=== PATIENT | female | born 1980 | race Hispanic/Latino ===

== ENCOUNTER 2017-06-19 17:51 | Emergency (ER) | payer MEDICAID ==
[2017-06-19] MEDS ORDERED: METHYLPREDNISOLONE SOD SUCC 125MG/2ML VIAL ONE (19:20)
[2017-06-19] MEDS ORDERED: ONDANSETRON HCL 4 MG/2 ML VIAL ONE (19:20)
[2017-06-19] MEDS ORDERED: MORPHINE SULFATE 4 MG/1ML SYG ONE (19:21)
[2017-06-19 19:39] LABS: APPEARANCE,URINE Cloudy (CLEAR); BILIRUBIN,URINE Negative (NEGATIVE); COLOR,URINE Yellow (YELLOW); GLUCOSE, URINE (UA) Negative (NEGATIVE); KETONES,URINE Negative (NEGATIVE); LEUKOCYTE ESTERASE ,URINE Negative (NEGATIVE); NITRATE,URINE Negative (NEGATIVE); OCCULT BLOOD,URINE Negative (NEGATIVE); PH,URINE 8.5 (5.0-8.0); PROTEIN,URINE Negative (NEGATIVE)
[2017-06-19 19:40] LABS: HCG,QUAL RESULT NEGATIVE (NEGATIVE)
[2017-06-19 19:48] LABS: AMORPHOUS SEDIMENT,UR Few /LPF (None Seen); BACTERIA,URINE Few /HPF (None Seen); RBC,URINE None Seen /HPF (0-1); SQUAMOUS EPITHELIAL CELL,UR None Seen /LPF (0-2); WBC,URINE 0-1 /HPF (0-1)
== END 2017-06-19 21:12 | disposition home or self-care (01) ==
LOC: EDH 17:51
DX: M54.42 Lumbago with sciatica, left side (principal)
CPT/HCPCS: 81001; 81025; 96374; 96375; 99284; J2270; J2405; J2930

== ENCOUNTER 2019-10-09 01:38 | Emergency (ER) | payer MEDICAID ==
[2019-10-09] MEDS ORDERED: TETANUS/DIPHTHERIA TOXOID [ADULT] 0.5 ML VIAL IM ONE (01:50)
[2019-10-09] MEDS ORDERED: LIDOCAINE HCL-MPF 2% 5ML VIAL ONE (02:27)
[2019-10-09] MEDS ORDERED: KETOROLAC TROMETHAMINE 60 MG/2 ML VIAL ONE (04:22)
[2019-10-09] MEDS ORDERED: CEFAZOLIN SODIUM 1 GM VIAL ONE (04:22)
== END 2019-10-09 05:23 | disposition home or self-care (01) ==
LOC: EDH 01:38
DX: S90.451A Superficial foreign body, right great toe, initial encounter (principal); S70.311A Abrasion, right thigh, initial encounter; S80.212A Abrasion, left knee, initial encounter; S80.211A Abrasion, right knee, initial encounter; S10.91XA Abrasion of unspecified part of neck, initial encounter; S20.319A Abrasion of unspecified front wall of thorax, initial encounter; L08.9 Local infection of the skin and subcutaneous tissue, unspecified; Y04.2XXA Assault by strike against or bumped into by another person, initial encounter; Y92.89 Other specified places as the place of occurrence of the external cause; Y93.89 Activity, other specified; Y99.8 Other external cause status
CPT/HCPCS: 10120; 73630; 73660; 90471; 90714; 96372 ×2; 99284; J0690; J1885; J3490

== ENCOUNTER 2019-10-10 13:04 | Inpatient (IN) | payer MEDICAID ==
[~2019-10-10] VITALS: Ht 157.5 cm; Wt 72.6 kg
[2019-10-10 13:41] LABS: BASOPHILS % (AUTO) 0.4 % (0.0-5.0); EOSINOPHILS % (AUTO) 0.6 % (0.0-8.0); HEMATOCRIT 38.4 % (36-48); LYMPHOCYTES % (AUTO) 20.4 % (21.0-51.0); MEAN CORPUSCULAR HEMOGLOBIN 28.2 pg (27.0-33.0); MEAN CORPUSCULAR HGB CONC 33.3 g/dL (32.0-36.0); MEAN CORPUSCULAR VOLUME 84.6 fL (79-99); MONOCYTES % (AUTO) 6.4 % (3.0-13.0); NEUTROPHILS % (AUTO) 71.9 % (40.0-77.0); PLATELET COUNT (AUTO) 284 K/uL (130-400); RED BLOOD CELL COUNT(AUTO) 4.54 MIL/uL (4.00-5.50); RED CELL DISTRIBUTION WIDTH 13.9 % (11.0-15.5); WHITE BLOOD COUNT (AUTO) 11.4 K/uL (4.8-10.8)
[2019-10-10 13:46] LABS: CREATININE 0.8 mg/dL (0.5-1.5); POTASSIUM 3.6 mmol/L (3.5-5.1)
[2019-10-10 13:52] LABS: ALBUMIN 3.3 g/dL (3.5-5.0); BILIRUBIN,DIRECT 0.1 mg/dL (0.0-0.3); BILIRUBIN,TOTAL 0.2 mg/dL (0.2-1.0); TOTAL PROTEIN, SERUM 6.8 g/dL (6.0-8.3)
[2019-10-10 13:54] LABS: INR 0.9 (0.85-1.15); PARTIAL THROMBOPLASTIN TIME 30.6 SEC (26.3-35.5); PROTHROMBIN TIME 9.8 SEC (9.6-11.6)
[2019-10-10 15:23] LABS: APPEARANCE,URINE Clear (CLEAR); BILIRUBIN,URINE Negative (NEGATIVE); COLOR,URINE Yellow (YELLOW); GLUCOSE, URINE (UA) Negative (NEGATIVE); KETONES,URINE Trace mg/dL (NEGATIVE); LEUKOCYTE ESTERASE ,URINE Trace (NEGATIVE); NITRATE,URINE Negative (NEGATIVE); OCCULT BLOOD,URINE Negative (NEGATIVE); PH,URINE 6.5 (5.0-8.0); PROTEIN,URINE Negative (NEGATIVE)
[2019-10-10 15:25] LABS: HCG,QUAL RESULT NEGATIVE (NEGATIVE)
[2019-10-10] MEDS ORDERED: KETOROLAC TROMETHAMINE 30MG/ML ONE (15:31)
[2019-10-10 16:17] LABS: BACTERIA,URINE Few /HPF (None Seen); MUCUS,URINE Moderate LPF (None Seen); SQUAMOUS EPITHELIAL CELL,UR Few /HPF (0-2)
[2019-10-10] MEDS: SODIUM CHLORIDE 0.9% 1000ML 1,000 ML IV SCH (16:45)
[2019-10-10] MEDS ORDERED: VANCOMYCIN PROTOCOL PER PHARMACY IV SCH (16:45)
[2019-10-10] MEDS ORDERED: CEFTRIAXONE SODIUM 1 GM ONE (16:58)
[2019-10-10] MEDS ORDERED: SODIUM CHLORIDE 0.9% 100 ML IV ONE (16:59)
[2019-10-10] MEDS ORDERED: VANCOMYCIN 1.75 GM in SODIUM CHLORIDE 0.9% 250 ML IV ONE (17:30)
[2019-10-10] MEDS ORDERED: COMPOUND IV REFRIGERATED 1 EACH IVSOLN MISC PRN (17:30)
[2019-10-10 17:45] VITALS: BP 105/72
[2019-10-10 18:19] LABS: AMPHET/METH SCREEN,URINE POSITIVE (NEGATIVE); BARBITURATE SCREEN, URINE NEGATIVE (NEGATIVE); BENZODIAZEPINES SCREEN,URINE NEGATIVE (NEGATIVE); CANNABINOID SCREEN,URINE POSITIVE (NEGATIVE); COCAINE SCREEN,URINE NEGATIVE (NEGATIVE); OPIATE SCREEN,URINE POSITIVE (NEGATIVE); PHENCYCLIDINE SCREEN,URINE NEGATIVE (NEGATIVE)
[2019-10-10] MEDS: MORPHINE SULFATE 2 MG/ML 1ML SYG IVP PRN (18:32)
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
[2019-10-10 20:00] VITALS: BP 127/67
[2019-10-10] MEDS: ACETAMINOPHEN-CODEINE 300/30MG TAB PO PRN (21:37)
[2019-10-10] MEDS ORDERED: ALPRAZOLAM 0.25 MG TABLET PO ONE (22:45)
[2019-10-10] MEDS ORDERED: ALPRAZOLAM 0.25 MG TABLET ONE (23:11)
[2019-10-11] VITALS: BP 117/71
[2019-10-11] MEDS ORDERED: VANCOMYCIN 1GM+NS 250ML 250 ML IV SCH
[2019-10-11] MEDS: MORPHINE SULFATE 2 MG/ML 1ML SYG IVP PRN ×3 (01:16→06:33)
[2019-10-11] MEDS: VANCOMYCIN 1GM+NS 250ML 250 ML IV SCH ×2 (03:27→10:50)
[2019-10-11] MEDS ORDERED: MORPHINE SULFATE 2 MG/ML 1ML SYG IVP ONE (03:30)
[2019-10-11 03:54] VITALS: BP 139/89
[2019-10-11] MEDS ORDERED: CEFTRIAXONE SODIUM 1 GM IVP SCH (04:00)
[2019-10-11 05:23] LABS: BASOPHILS % (AUTO) 0.4 % (0.0-5.0); EOSINOPHILS % (AUTO) 1.8 % (0.0-8.0); HEMATOCRIT 33.9 % (36-48); LYMPHOCYTES % (AUTO) 36.8 % (21.0-51.0); MEAN CORPUSCULAR HEMOGLOBIN 28.5 pg (27.0-33.0); MEAN CORPUSCULAR HGB CONC 32.7 g/dL (32.0-36.0); MEAN CORPUSCULAR VOLUME 87.1 fL (79-99); MONOCYTES % (AUTO) 7.6 % (3.0-13.0); NEUTROPHILS % (AUTO) 53.1 % (40.0-77.0); PLATELET COUNT (AUTO) 249 K/uL (130-400); RED BLOOD CELL COUNT(AUTO) 3.89 MIL/uL (4.00-5.50); RED CELL DISTRIBUTION WIDTH 13.9 % (11.0-15.5); WHITE BLOOD COUNT (AUTO) 10.5 K/uL (4.8-10.8)
[2019-10-11 05:44] LABS: CREATININE 0.7 mg/dL (0.5-1.5); POTASSIUM 4.5 mmol/L (3.5-5.1)
[2019-10-11 08:16] VITALS: BP 128/72
[2019-10-11] MEDS: ACETAMINOPHEN-CODEINE 300/30MG TAB PO PRN (08:48)
[2019-10-11] MEDS: SODIUM CHLORIDE 0.9% 1000ML 1,000 ML IV SCH (08:48)
[2019-10-11 11:39] VITALS: BP 112/69
[2019-10-11] MEDS ORDERED: CEFEPIME HCL 1 GM VIAL IVP SCH (14:15)
[2019-10-11] MEDS ORDERED: ACETAMINOPHEN-CODEINE 300/30MG TAB PO SCH (14:45)
--- NOTE | 2019-10-11 15:00 | NUR ---
MARINA NOTE MET WITH [facility] FOR DISCHARGE PLANNING. GIDEON RECENTLY RELOCATED TO [place] TO LIVE WITH MOTHER, LISTED ON [facility] WHO WILL ALSO PROVIDE TRANSPORT HOME, PREVIOUSLY INDEPENDENT AND NO DME OR SERVICES- HAS NOT CHANGED HER MEDICAID ADDRESS YET. USED TO L[address]ES AT [address] [address]. ADVISED HER WOULD HAVE TO SEE IF HER MEDICAD WOULD GIVE HER AFTERCARE BENEFIT OF HH/ WOUND CARE . GIDEON AGREED, WILL FOLLOW UP IN AM Addendum: 10/12/19 at 0904 by ULISES RENDON RN CM Amended: Links added.
[2019-10-11] MEDS ORDERED: DRONABINOL 2.5 MG CAP PO SCH ×2 (15:15→21:00)
[2019-10-11] MEDS ORDERED: GADODIAMIDE 10 MMOL/20 ML VIAL IV ONE (16:14)
[2019-10-11 16:20] VITALS: BP 134/83
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
--- NOTE | 2019-10-11 18:30 | NUR ---
JIMENAMisael pt requesting to check herself out of the hospital , discussed with her the risks of leaving [facility] but is insisting on leaving . [id number] -Dr Lindsay notified Addendum: 10/11/19 at 1905 by KAYCEE KIM RN RN Amended: Links added.
[2019-10-11] MEDS ORDERED: DRONABINOL 2.5 MG CAP PO ONE (21:00)
== END 2019-10-11 19:02 | disposition left against medical advice (07) | DRG 384 ==
LOC: EDH 13:04 → EDHIP 13:05 → 3AH 17:49
PROVIDERS: ADMIT Internal Medicine; ATTEND Internal Medicine
DX: S91.131A Puncture wound without foreign body of right great toe without damage to nail, initial encounter (principal); F12.10 Cannabis abuse, uncomplicated; L03.031 Cellulitis of right toe; L02.611 Cutaneous abscess of right foot; F15.10 Other stimulant abuse, uncomplicated; F41.9 Anxiety disorder, unspecified; M48.00 Spinal stenosis, site unspecified; W45.0XXA Nail entering through skin, initial encounter; Y92.098 Other place in other non-institutional residence as the place of occurrence of the external cause; Y99.8 Other external cause status; Z72.0 Tobacco use; Y93.89 Activity, other specified
CPT/HCPCS: 10120; 36415; 73630; 73660; 73720; 80048; 80076; 80202; 80305; 81001; 81025; 84145; 84702; 85025; 85610; 85651; 85730; 86140; 87040; 87070; 87077; 87186; 90471; 90714; 96372; A9579; G0378; J0690; J0692; J0696; J1885; J3370; J3490; J7050

== ENCOUNTER 2024-02-20 08:34 | Emergency (ER) | payer SELFPAY ==
[~2024-02-20] VITALS: Ht 170.2 cm; Wt 81.6 kg
[2024-02-20 09:21] LABS: BASOPHILS # (AUTO) 0.05 K/uL (0.00-0.20); BASOPHILS % (AUTO) 0.5 % (0.0-5.0); EOSINOPHILS # (AUTO) 0.12 K/uL (0.00-0.70); EOSINOPHILS % (AUTO) 1.2 % (0.0-8.0); HEMATOCRIT 38.3 % (36-48); IMMATURE GRANULOCYTE ABSOLUTE 0.02 K/uL (0-1); LYMPHOCYTES # (AUTO) 2.9 K/uL (1.0-4.8); LYMPHOCYTES % (AUTO) 28.5 % (21.0-51.0); MEAN CORPUSCULAR HEMOGLOBIN 29.8 pg (27.0-33.0); MEAN CORPUSCULAR HGB CONC 33.9 g/dL (32.0-36.0); MEAN CORPUSCULAR VOLUME 87.8 fL (79-99); MONOCYTES # (AUTO) 0.5 K/uL (0.1-1.0); MONOCYTES % (AUTO) 4.7 % (3.0-13.0); NEUTROPHILS # (AUTO) 6.7 K/uL (1.8-7.7); NEUTROPHILS % (AUTO) 64.9 % (40.0-77.0); PLATELET COUNT (AUTO) 239 K/uL (130-400); RED BLOOD CELL COUNT(AUTO) 4.36 MIL/uL (4.00-5.50); RED CELL DISTRIBUTION WIDTH 12.8 % (11.0-15.5); WHITE BLOOD COUNT (AUTO) 10.3 K/uL (4.8-10.8)
[2024-02-20 09:25] LABS: HCG,QUALITATIVE URINE NEGATIVE (NEGATIVE)
[2024-02-20 09:33] LABS: CREATININE 0.8 mg/dL (0.5-1.0); POTASSIUM 4.1 mmol/L (3.5-5.1)
[2024-02-20 09:38] LABS: APPEARANCE,URINE CLEAR (CLEAR); BACTERIA,URINE RARE /HPF (None Seen); BILIRUBIN,URINE NEGATIVE (NEGATIVE); COLOR,URINE YELLOW (YELLOW); GLUCOSE, URINE (UA) NEGATIVE (NEGATIVE); KETONES,URINE NEGATIVE (NEGATIVE); LEUKOCYTE ESTERASE ,URINE 75 Leu/uL (NEGATIVE); NITRATE,URINE NEGATIVE (NEGATIVE); OCCULT BLOOD,URINE NEGATIVE (NEGATIVE); PROTEIN,URINE NEGATIVE (NEGATIVE); SQUAMOUS EPITHELIAL CELL,UR RARE /HPF (0-2); UROBILINOGEN,URINE 0.2 mg/dL (0.2-1.0)
[2024-02-20] MEDS ORDERED: CEPH500B PO (09:53)
[2024-02-20] MEDS ORDERED: FLUT16H NS (09:53)
[2024-02-20] MEDS ORDERED: LORA10TA7 PO (09:53)
[2024-02-20 09:54] VITALS: BP 107/67; PULSE 88; RESP 18; TEMP 97.9; O2SAT 99
== END 2024-02-20 10:04 | disposition home or self-care (01) ==
LOC: EDH 08:34
DX: N39.0 Urinary tract infection, site not specified (principal); J32.9 Chronic sinusitis, unspecified
CPT/HCPCS: 36415; 80048; 81001; 81025; 85025; 87086; 87186